=== PATIENT | female | born 1955 | race Two or more races ===

== ENCOUNTER 2019-07-09 13:09 | Outpatient (CLI) | payer MEDICARE, OTHER ==
[2019-07-09 13:24] LABS: BASOPHILS # (AUTO) 0.1 10^3/uL (0.0-0.1); BASOPHILS % (AUTO) 0.5 %; EOSINOPHILS # (AUTO) 0.3 10^3/uL (0.0-0.7); EOSINOPHILS % (AUTO) 2.2 %; HGB - HEMOGLOBIN 13.7 g/dL (12.0-16.0); LYMPHOCYTES % (AUTO) 15.2 %; MEAN CORPUSCULAR HEMOGLOBIN 28.2 pg (27.0-31.0); MEAN CORPUSCULAR HGB CONC 31.6 g/dL (32.0-36.0); MEAN CORPUSCULAR VOLUME 89.5 fL (81.0-99.0); MEAN PLATELET VOLUME 10.2 fL (7.9-10.8); MONOCYTES # (AUTO) 0.8 10^3/uL (0.0-1.0); MONOCYTES % (AUTO) 6.4 %; NEUTROPHILS # (AUTO) 9.8 10^3/uL (1.5-6.6); NEUTROPHILS % (AUTO) 75.2 %; PLT - PLATELET COUNT 296 10^3/uL (130-450); RED BLOOD COUNT 4.85 10^6/uL (4.20-5.40); RED CELL DISTRIBUTION WIDTH 13.2 % (12.0-15.0)
[2019-07-09 13:50] LABS: ALBUMIN 4.1 g/dL (3.2-5.5); BILIRUBIN,TOTAL 0.8 mg/dL (0.2-1.0); CALCIUM 9.1 mg/dL (8.5-10.3); CREATININE 0.9 mg/dL (0.4-1.0); TOTAL PROTEIN 8.3 g/dL (6.7-8.2)
== END 2019-07-09 13:10 | disposition home or self-care (01) ==
LOC: LAB 13:09
PROVIDERS: ATTEND Internal Medicine
DX: I50.9 Heart failure, unspecified (principal); J90 Pleural effusion, not elsewhere classified
CPT/HCPCS: 36415; 80053; 85025

== ENCOUNTER 2023-11-04 15:58 | Inpatient (IN) | payer MEDICARE, OTHER ==
--- NOTE | 2023-11-04 16:10 | ED Physician Documentation ---
PD HPI CHEST PAIN - Stated complaint Stated Complaint: CHEST PX - History obtained from History obtained from: Patient, Family - Additional information Additional information: 67-year-old woman with history of coronary disease with four-vessel bypass and a valve repair done in [place] about 5 years ago. As of late she has been noncompliant with medications, not taking aspirin. She is also a diabetic. She was awoken this morning at 6 AM with chest tightness that has been pretty consistent since then. Associate with mild shortness of breath and nausea and dizziness but no sweats. She denies any new pedal edema or calf pain. She does have some chronic pedal edema from a prior injury there. PD PAST MEDICAL HISTORY - Past Medical History Past Medical History: Yes Cardiovascular: Hypertension, High cholesterol Endocrine/Autoimmune: Type 2 diabetes - Past Surgical History Past Surgical History: Yes Cardiovascular: CABG - Present Medications Home Medications: Ambulatory Orders Medication Instructions Recorded Confirmed Home Medications Unobtainable 11/04/23 11/04/23 [HOME MEDICATIONS UNOBTAINABLE] - Allergies Allergies/Adverse Reactions: Allergies Allergy/AdvReac Type Severity Reaction Status Date / Time No Known Drug Allergies Allergy Verified 11/04/23 16:06 - Social History Does the pt smoke?: No Smoking Status: Never smoker Does the pt drink ETOH?: No Does the pt have substance abuse?: No - Immunizations Immunizations are current?: Yes PD ED PE NORMAL - Vitals Vital signs reviewed: Yes - General General: Alert and oriented X 3, No acute distress - HEENT HEENT: PERRL, EOMI - Neck Neck: Supple, no meningeal sign, No bony TTP - Cardiac Cardiac: RRR, No murmur - Respiratory Respiratory: No respiratory distress, Clear bilaterally - Abdomen Abdomen: Non tender - Extremities Extremities: Other (Right greater than left pedal edema with venous stasis changes. This is chronic per patient.) - Neuro Neuro: Alert and oriented X 3, Normal speech Results - Vitals Vitals: Vital Signs - 24 hr 11/04/23 11/04/23 11/04/23 16:06 16:39 16:58 Temperature 36.5 C Heart Rate 96 92 94 Respiratory 20 18 23 Rate Blood Pressure 155/79 H 155/79 H 93/53 L O2 Saturation 100 94 95 11/04/23 11/04/23 11/04/23 17:09 17:30 18:00 Temperature Heart Rate 89 87 83 Respiratory 26 H 23 17 Rate Blood Pressure 123/67 116/67 130/68 O2 Saturation 96 95 97 11/04/23 18:30 Temperature Heart Rate 81 Respiratory 14 Rate Blood Pressure 142/69 H O2 Saturation 96 Oxygen O2 Source Room air - EKG (time done) 1603 EKG releavant findings:: EKG personally interpreted by author of this note. Relevant findings are: Rate: Rate (enter#) (92) Rhythm: NSR [place]: Normal Intervals: Prolonged MS QRS: LVH Ischemia: Q waves (Inferior Q waves). No: ST elevation c/w ischemia, ST depression Compare to prior EKG: Old EKG unavailable Computer interpretation: Agree with computer - Labs Labs: Laboratory Tests 11/04/23 11/04/23 16:35 16:35 WBC 22.0 H RBC 4.88 Hgb 14.1 Hct 42.3 MCV 86.7 MCH 28.9 MCHC 33.3 RDW 12.1 Plt Count 279 MPV 10.5 Neut # (Auto) Not Reportable Lymph # (Auto) Not Reportable [place] # (Auto) Not Reportable Eos # (Auto) Not Reportable Baso # (Auto) Not Reportable Absolute Nucleated RBC Not Reportable Total Counted 100 Band Neuts % (Manual) 4 Abnorm Lymph % (Manual) 0 Nucleated RBC % Not Reportable Neutrophils # (Manual) 19.4 H Lymphocytes # (Manual) 1.3 L Monocytes # (Manual) 1.3 H Eosinophils # (Manual) 0.0 Basophils # (Manual) 0.0 Differential Comment MANUAL DIFFERENTIAL Platelet Estimate NORMAL (130-450,000) Platelet Morphology NORMAL APPEARANCE RBC Morph Micro Appear NORMAL APPEARANCE Sodium 131 L Potassium 4.1 Chloride 98 L Carbon Dioxide 23 Anion Gap 10.0 BUN 30 H Creatinine 1.1 Estimated GFR (MDRD) 49 L Glucose 454 H Calcium 9.7 Total Bilirubin 2.1 H AST 446 H ALT 129 H Alkaline Phosphatase 190 H Troponin I High Sens 4.5 Total Protein 7.3 Albumin 4.0 Globulin 3.3 Albumin/Globulin Ratio 1.2 Lipase 38 PD Medical Decision Making - ED course ED course: 67-year-old woman with history of four-vessel coronary bypass and valve repair presents with ongoing chest tightness since 6 AM. Her initial EKG was sinus rhythm and nonischemic. I ordered some metoprolol, Nitropaste and aspirin. Whe n queried about medication compliance, she says she takes metoprolol about twice a week when she remembers, and she is not on anything for her diabetes. There is called into the room around 4:30 PM. She would become nauseous and developed significant heart block with 5+ second pauses. She was vomiting during that time and after she vomited, her heart rate came back to normal. Subsequently her initial lab work was notable for white count of 22,000 and mild hyponatremia, and elevated liver enzymes. On reexamination at that time, 5:05 PM she had no abdominal tenderness including to deep palpation in the right upper quadrant. That said biliary etiology of her pain is still a possibility and a right upper quadrant ultrasound was ordered. She was feeling much better at that time and has not had any more pauses. At about 5:30 PM I did discuss the case with our hospitalist. With the specific question of if she has cholecystitis or even if not could she be admitted here. We discussed the case with the on-call STONE PRODUCT FABRICATOR, and all felt that as long as there were no more blocks she could probably be admitted here for further evaluation and treatment. Care to Dr Flores at 6p pending CARLI sono and admit. Departure - Departure Clinical Impression: Chest pain, Vaso-vagal reaction, Sinus pause, Elevated liver enzymes Condition: Serious
[2023-11-04] MEDS: METOPROLOL TARTRATE 25 MG TABLET PO STA (16:23)
[2023-11-04] MEDS: ASPIRIN CHEW 81 MG TABLET PO STA (16:23)
[2023-11-04] MEDS: NITROGLYCERIN SL 0.4 MG TABLET SL STA (16:24)
[2023-11-04 16:51] LABS: BASOPHILS % (AUTO) 0.3 %; HCT - HEMATOCRIT 42.3 % (37.0-47.0); HGB - HEMOGLOBIN 14.1 g/dL (12.0-16.0); LYMPHOCYTES % (AUTO) 3.5 %; MEAN CORPUSCULAR HEMOGLOBIN 28.9 pg (27.0-31.0); MEAN CORPUSCULAR HGB CONC 33.3 g/dL (32.0-36.0); MEAN CORPUSCULAR VOLUME 86.7 fL (81.0-99.0); MEAN PLATELET VOLUME 10.5 fL (7.9-10.8); MONOCYTES % (AUTO) 4.3 %; NEUTROPHILS % (AUTO) 91.4 %; PLT - PLATELET COUNT 279 10^3/uL (130-450); RED BLOOD COUNT 4.88 10^6/uL (4.20-5.40); RED CELL DISTRIBUTION WIDTH 12.1 % (12.0-15.0)
[2023-11-04 16:54] LABS: ABNORMAL LYMPHS % (MANUAL) 0 %
[2023-11-04] MEDS: ONDANSETRON 4 MG/2 ML VIAL IVP STA (17:00)
[2023-11-04 17:02] LABS: ALBUMIN/GLOBULIN RATIO 1.2 (1.0-2.2); BILIRUBIN,TOTAL 2.1 mg/dL (0.2-1.0); CALCIUM 9.7 mg/dL (8.5-10.3); CREATININE 1.1 mg/dL (0.6-1.3); POTASSIUM 4.1 mmol/L (3.5-4.5); TOTAL PROTEIN 7.3 g/dL (6.4-8.9)
[2023-11-04 17:08] LABS: TROPONIN I HIGH SENSITIVITY 4.5 ng/L (2.3-14.8)
[2023-11-04 17:12] LABS: BAND NEUTROPHILS % (MANUAL) 4 %; LYMPHOCYTES # (MANUAL) 1.3 10^3/uL (1.5-3.5); LYMPHOCYTES % (MANUAL) 6 %; MONOCYTES # (MANUAL) 1.3 10^3/uL (0.0-1.0); NEUTROPHILS # (MANUAL) 19.4 10^3/uL (1.5-6.6)
[2023-11-04 17:13] LABS: DIFFERENTIAL COMMENT MANUAL DIFFERENTIAL; PLATELET ESTIMATE, MANUAL NORMAL (130-450,000) (NORMAL); PLATELET MORPHOLOGY NORMAL APPEARANCE (NORMAL); RBC MORPHOLOGY (MULTIPLE) NORMAL APPEARANCE (NORMAL)
[2023-11-04] MEDS: SODIUM CHLORIDE 0.9% 1,000 ML IV STA (17:28)
--- NOTE | 2023-11-04 17:34 | XRAY Report ---
PROCEDURE: Chest 1V INDICATIONS: Chest Pain TECHNIQUE: One view of the chest was acquired. COMPARISON: None. FINDINGS: Surgical changes and devices: Sternotomy wires are present. Lungs and pleura: No dense consolidation or pleural effusion. Mild left lower lung opacity. Mediastinum: Borderline cardiomegaly Bones and chest wall: Degenerative changes IMPRESSION: Mild left lower lung opacity could represent early airspace disease versus atelectasis. Otherwise, no acute abnormality on this single view portable study. Reviewed by: Chon Holloway MD on 11/04/2023 5:33 PM PDT Approved by: Chon Holloway MD on 11/04/2023 5:33 PM PDT Station ID: [id number]
[2023-11-04] MEDS: INSULIN REGULAR, HUMAN 300 UNIT/3 ML PEN IVP STA (17:38)
--- NOTE | 2023-11-04 19:44 | Ultrasound Report ---
PROCEDURE: Abdomen Limited INDICATIONS: chest pain, abn liver enz TECHNIQUE: Real-time focused scanning was performed of the abdomen, with image documentation. COMPARISONS: None. FINDINGS: The liver measures 18 cm. Appearance is heterogeneous and increased echotexture. Main portal vein brendan ears patent. Distended gallbladder with mild wall thickening of 4 to 5 mm. Suspected sludge is present. No sonogra phic Yuen's sign. CBD measures 7 to 8 mm. Right kidney measures 11 cm. IMPRESSION: Distended gallbladder with sludge and mild and edematous wall thickening. No sonographic Yuen's sig n to suggest acute cholecystitis at this time. CBD is mildly dilated at 7 to 8 mm. Increased heterogeneous echotexture of the liver, nonspecific but most commonly seen with fibrofatty infiltration. Reviewed by: Chon Holloway MD on 11/04/2023 7:43 PM PDT Approved by: Chon Holloway MD on 11/04/2023 7:43 PM PDT Station ID: [id number]
--- NOTE | 2023-11-04 20:57 | ED Physician Documentation ---
ED Addendum - Addendum Addendum: 11/04/23 20:56 Patient was signed out to me by Dr. Tyler awaiting ultrasound. Ultrasound does not show any gallstones but does show some sludge. I discussed the ultrasound findings as well as the laboratory findings with Dr. Henson, general surgery on- call. The patient does have some mild chest discomfort but does not have any right upper quadrant tenderness or epigastric tenderness even to deep palpation. Possible mildly dilated duct, but again no stones. Dr. Henson recommends trending the patient's labs, seeing how she is feeling in the morning. Recommends holding antibiotics at this time as she is afebrile and is not having any abdominal pain. After this discussion, the telehospitalist was paged for observation to trend LFT's, wbc count, monitor on tele for any more episodes of heart block and serial troponins. 11/04/23 22:18 Discussed the case with the nighttime hospitalist, request repeat liver function test before admission. Therefore this was ordered. The patient's urinalysis also came back which does appear to show UTI, but giving antibiotics would comp licate the potential cholecystitis, therefore this will be held until repeat LFTs in the morning. Patient is signed out to Dr. Pennington. Departure - Departure Disposition: ED Place in Observation Clinical Impression: Chest pain, Vaso-vagal reaction, Sinus pause, Elevated liver enzymes, Leukocytosis, UTI (urinary tract infection), Hyperglycemia Condition: Serious Forms: PCP List
[2023-11-04 21:10] LABS: BILIRUBIN,URINE NEGATIVE (NEGATIVE); GLUCOSE, URINE (UA) >=1000 mg/dL (NEGATIVE); KETONES,URINE (UA) TRACE mg/dL (NEGATIVE); LEUKOCYTE ESTERASE, URINE SMALL (NEGATIVE); NITRITE,URINE POSITIVE (NEGATIVE); OCCULT BLOOD,URINE LARGE (NEGATIVE); PROTEIN,URINE 30 mg/dL (NEGATIVE); UROBILINOGEN,URINE 1 (NORMAL) E.U./dL (NORMAL)
[2023-11-04 21:11] LABS: CLARITY,URINE CLOUDY (CLEAR)
[2023-11-04 21:23] LABS: WBC CLUMPS,URINE PRESENT; WBC,URINE >25 /HPF (0-5)
[2023-11-04 21:24] LABS: BACTERIA,URINE Many /HPF (None Seen); EPITHELIAL CELLS,UR RARE Transitional /HPF (<= Few); SQUAMOUS EPITHELIAL CELL,UR FEW Squamous (<= Few)
[2023-11-04 22:21] LABS: BASOPHILS % (AUTO) 0.2 %; EOSINOPHILS % (AUTO) 0.1 %; HGB - HEMOGLOBIN 12.9 g/dL (12.0-16.0); LYMPHOCYTES # (AUTO) 0.7 10^3/uL (1.5-3.5); LYMPHOCYTES % (AUTO) 4.6 %; MEAN CORPUSCULAR HEMOGLOBIN 29.2 pg (27.0-31.0); MEAN CORPUSCULAR HGB CONC 33.9 g/dL (32.0-36.0); MEAN PLATELET VOLUME 10.2 fL (7.9-10.8); MONOCYTES # (AUTO) 0.5 10^3/uL (0.0-1.0); MONOCYTES % (AUTO) 3.6 %; NEUTROPHILS # (AUTO) 13.5 10^3/uL (1.5-6.6); NEUTROPHILS % (AUTO) 91.1 %; PLT - PLATELET COUNT 251 10^3/uL (130-450); RED BLOOD COUNT 4.42 10^6/uL (4.20-5.40); RED CELL DISTRIBUTION WIDTH 12.1 % (12.0-15.0); WHITE BLOOD COUNT 14.8 x10^3/uL (4.8-10.8)
[2023-11-04 22:43] LABS: ALBUMIN 3.6 g/dL (3.2-5.5); ALBUMIN/GLOBULIN RATIO 1.2 (1.0-2.2); BILIRUBIN,TOTAL 2.1 mg/dL (0.2-1.0); POTASSIUM 4.2 mmol/L (3.5-4.5); TOTAL PROTEIN 6.5 g/dL (6.4-8.9)
[2023-11-04] MEDS ORDERED: oxyCODONE 5 MG TABLET PO PRN (23:25)
[2023-11-04] MEDS ORDERED: ONDANSETRON 4 MG/2 ML VIAL IVP PRN (23:25)
[2023-11-04] MEDS ORDERED: SODIUM CHLORIDE FLUSH 0.9% 10 ML SYRINGE IVP PRN (23:25)
[2023-11-04] MEDS ORDERED: ZOLPIDEM 5 MG TABLET PO PRN (23:25)
--- NOTE | 2023-11-04 23:34 | ED Physician Documentation ---
ED Addendum - Addendum Addendum: 11/05/23 11:14 Care of this patient was signed out to me by Dr. Flores who, in turn, had received sign out from Dr. Tyler. At the time care of patient was turned over to me, the ED course was already quite protracted and is well-documented on my colleagues notes. When I received signout, repeat blood tests (CBC, LFTs) were pending; these had been ordered at the request of the [facility] practitioner to whom Dr. Flores had presented the case for consideration for admission to [facility]. After these tests were resulted, I reviewed the results and placed a consult for [facility]. However, before I heard back from them, I was then informed by ED DOOR TO DOOR SALESMAN that admit orders had already been entered into [facility] for admission (by [employer]; this was apparently done right around the time I entered the request for (re)consult). Thus, I was not directly involved in this p atient's care during my shift.
[2023-11-05] MEDS ORDERED: PIPERACILLIN/TAZOBACTAM 3.375 GM in SODIUM CHLORIDE 0.9% MINIBAG 100 ML IV SCH
--- NOTE | 2023-11-05 00:15 | HISTORY & PHYSICAL EXAMINATION ---
Chief Complaint - Chief Complaint Chief Complaint: chest pain History of Present Illness - Admitted From Admitted From:: Home - History Obtained From Records Reviewed: Yes History obtained from: Patient, EMR Exam Limitations: Televideo - History of Present Illness HPI Comment/Other: As per ER MD "67-year-old woman with history of four-vessel coronary bypass and valve repair presents with ongoing chest tightness since 6 AM. Her initial EKG was sinus rhythm and nonischemic. I ordered some metoprolol, Nitropaste and aspirin. When queried about medication compliance, she says she takes metoprolol about twice a week when she remembers, and she is not on anything for her diabetes. There is called into the room around 4:30 PM. She would become nauseous and developed significant heart block with 5+ second pauses. She was vomiting during that time and after she vomited, her heart rate came back to normal. Subsequently her initial lab work was notable for white count of 22,000 and mild hyponatremia, and elevated liver enzymes. On reexamination at that time, 5:05 PM she had no abdominal tenderness including to deep palpation in the right upper quadrant. That said biliary etiology of her pain is still a possibility and a right upper quadrant ultrasound was ordered. She was feeling much better at that time and has not had any more pauses. At about 5:30 PM I did discuss the case with our hospitalist. With the specific question of if she has cholecystitis or even if not could she be admitted here. We discussed the case with the on-call LABOR UNION BUSINESS REPRESENTATIVE, and all felt that as long as there were no more blocks she could probably be admitted here for further evaluation and treatment. Care to Dr Flores at 6p pending RUQ sono and admit." Dr Flores called and we discussed patient at length I requested repeat CMP as diabetic patients may not have classical pain, repeat LFT are stable, I did a televideo with patient and her daughter, informed them that I am based in [place], verbal consent obtained to proceed with telemedicine encounter, patient is a retired marine, was very active till 5 years ago had 5 vessel bypass with valve repair, took meds religiously around 2 years ago felt meds were making her slow and decided to stop meds and took them as needed, states diabetes is managed by diet She looks comfortable still feels some tightness and pressure in the mid chest and right chest area, no nausea, no vomiting no fever no other active complaints, she is not complaining of classical chest pain not complaints of RLQ pain her USG was not normal but did not show a stone, have ordered MRCP of ABD in am and vinnie has been informed, she will be kept NPO except meds, have offered pain meds as needed, no tylenol due to elevated lft, have resumed asa and have held on insulin to see her A1c and lipid in am. All questions answered and also code status discussed and advance directives discussed, patient expressed full code I have discussed plan of care at [facility] with patient and her daughter History - Past Medical History Cardiovascular: reports: Hypertension, High cholesterol Endocrine/Autoimmune: reports: Type 2 diabetes MRSA Hx?: No - Past Surgical History Cardiovascular: reports: CABG Meds/Allgy - Home Medications Home Medications: Ambulatory Orders Medication Instructions Recorded Confirmed Home Medications Unobtainable 11/04/23 11/04/23 [HOME MEDICATIONS UNOBTAINABLE] - Allergies Allergies/Adverse Reactions: Allergies Allergy/AdvReac Type Severity Reaction Status Date / Time No Known Drug Allergies Allergy Verified 11/04/23 16:06 Review of Systems - Cardiovascular Cariovascular: reports: Chest pain Prior Level of Functionality: Independent with ADL Exam - Vital Signs Vital Signs: Vital Signs x48h Temp Pulse Resp BP Pulse Ox 11/04/23 22:00 75 18 152/71 H 96 11/04/23 21:00 64 18 147/73 H 99 11/04/23 18:30 81 14 142/69 H 96 11/04/23 18:00 83 17 130/68 97 11/04/23 17:30 87 23 116/67 95 11/04/23 17:09 89 26 H 123/67 96 11/04/23 16:58 94 23 93/53 L 95 11/04/23 16:39 92 18 155/79 H 94 11/04/23 16:06 36.5 C 96 20 155/79 H 100 - Physical Exam General Appearance: positive: No acute distress Eyes Bilateral: positive: Normal inspection, PERRL, Other ENT: positive: ENT inspection nml Neck: positive: Nml inspection, Thyroid nml Respiratory: positive: No respiratory distress Cardiovascular: positive: Regular rate & rhythm Abdomen: positive: Non-tender Back: positive: Nml inspection Skin: positive: Color nml, No rash Extremities: positive: Nml appearance Neurologic/Psychiatric: positive: Oriented x3, CN's nml (2-12) Sepsis Event Note (H) - Evaluation Current Stage of Sepsis: Ruled out Conclusion/Plan - Problem List (1) Chest pain Conclusion/Plan: Check cardiac enzymes, ASA 81 mg daily Troponin Echo Daughter to bring home meds in am SCD Qualifiers: Chest pain type: unspecified Qualified Code(s): R07.9 - Chest pain, unspecified (2) Elevated liver enzymes Conclusion/Plan: Avoid nephrotoxins IF MRCP negative check hepatitis profile Gen surgery consulted On Zosyn Holding statins and Tylenol (3) Leukocytosis Conclusion/Plan: Likely UTI and possible gall stone monitor for now repeat WBC (4) Sinus pause Conclusion/Plan: Hold Metoprolol traffic monitor specialist for now Check Echo (5) UTI (urinary tract infection) Conclusion/Plan: Started on Zosyn broad spectrum, for intra abdominal coverage follow up urine cultures - Lab Results Fish Bones: 11/04/23 22:16 11/04/23 22:16
[2023-11-05] MEDS: SODIUM CHLORIDE FLUSH 0.9% 10 ML SYRINGE IVP SCH (01:02)
[2023-11-05] MEDS: SODIUM CHLORIDE 0.9% 1,000 ML IV SCH (01:02)
[2023-11-05] MEDS: PIPERACILLIN/TAZOBACTAM 3.375 GM in SODIUM CHLORIDE 0.9% MINIBAG 100 ML IV ONE (01:12)
[2023-11-05] MEDS: PIPERACILLIN/TAZOBACTAM 3.375 GM in SODIUM CHLORIDE 0.9% MINIBAG 100 ML IV SCH ×2 (01:33→04:40)
[2023-11-05] MEDS: ASPIRIN EC 81 MG TABLET PO SCH (09:06)
[2023-11-05 10:34] LABS: ESTIMATED AVERAGE GLUCOSE 395 mg/dL (70-100); HEMOGLOBIN A1c% 15.4 % (4.27-6.07)
--- NOTE | 2023-11-05 10:40 | PHARMACY PROGRESS NOTE ---
- Best Possible Medication History Admit Date and Time: 11/04/23 3688 Processed by: Pharmacy Medications reviewed in ED?: No Medication History completed: Yes Patient Interview: Completed Secondary Source(s): Insurance records (Patient has filled some medications, but does not remember to take them regularly and maybe only takes metoprolol 20% of the time. Patient plans to see outpatient provider to see where to start again. ) As the person ultimately responsible for medication therapy, providers are able to order a medication from an existing home medication list in [facility] via the "Reconcile Routine" prior to Confirmation of that medication by user support analyst supervisor. Such practice is discouraged except when the physician, in their clinical judgment, deems that a medical need exists for a medication without regard to previous use.
[2023-11-05] MEDS ORDERED: GADOTERATE MEGLUMINE 7.5 MMOL/15 ML VIAL ONE (10:48)
--- NOTE | 2023-11-05 12:14 | PROVIDER PROGRESS NOTE ---
Subjective - Prog Note Date Prog Note Date: 11/05/23 Prog Note Time: 09:15 - Subjective Pt reports feeling: Improved Subjective: Ms. Andre is a 67-year-old woman with history of four-vessel coronary bypass and valve repair who presented to the ED on 11/03 with ongoing chest tightness since 6 AM. When queried about medication compliance, she says she takes metoprolol about twice a week when she remembers, and she is not on anything for her diabetes. She is a retired marine, was very active till 5 years ago had 5 vessel bypass with valve repair, took meds religiously around 2 years ago felt meds were making her slow and decided to stop meds and took them as needed, states diabetes is managed by diet. Chest pain was treated with metoprolol, Nitropaste and aspirin. At 4:30 PM she become nauseous and developed significant heart block with 5+ second pauses. She was vomiting during that time and after she vomited, her heart rate came back to normal. In the ED, her initial EKG was sinus rhythm and nonischemic. Initial work-up notable for white count of 22,000 and elevated liver enzymes. She has no abdominal tenderness including to deep palpation in the right upper quadrant. Biliary etiology of her pain is a possibility and can cause nausea and vomiting. She has not had any further vomiting, bradycardia or heart block. Repeat LFTs are stable but markedly elevated but she has no fever, RUQ pain, or jaundice. She continued to have some tightness and pressure in the mid chest and right chest area. Her chest pain is not consistent with ACS and troponin was normal with no ischemia or ST elevation on 12-lead. AUS showed a distended gallbladder with sludge and mild edematous wall thickening, CBD mildly dilated at 7-8 mm, and increased heterogenous echotexture of the liver, most commonly seen with fibrofatty infiltration. She was found to have a UTI but has no associated urinary complaints. She was started on zosyn and admitted for further work-up. Upon assessment, she resting comfortably and roused easily. She is ambulatory, alert and oriented, and reports mild chest tightness and nausea. She has not vo mited since admission and denies cough, SOB, abdominal pain, or dysuria. Her labs are concerning for cholangitis and she meets laboratory criteria including leukocytosis, T. bili >2, and US findings of CBD dilation. She has no expected physical exam findings or complaints for cholangitis such as RUQ pain, jaundice, or fever. An MRCP has been ordered to evaluate for billiary obstruction suggested by dilation of the common bile duct and she is on zosyn to cover abdominal infection and concurrent UTI. If obstruction is present, she will need transfer for ERCP which is not available in this facility. Current Medications - Current Medications Current Medications: Active Medications Generic Name Dose Route Start Last Admin Trade Name Freq PRN Reason Stop Dose Admin Aspirin 81 mg 11/05/23 09:00 11/05/23 09:06 Aspirin Ec 81 Mg Tablet PO Not Given DAILY CRISTIANA Sodium Chloride 1,000 mls @ 100 mls/hr 11/04/23 23:45 11/05/23 01:02 Normal Saline 0.9% IV 100 mls/hr .Q10H CRISTIANA Administration Piperacillin Sod/Tazobactam 100 mls @ 25 mls/hr 11/05/23 04:30 11/05/23 12:28 Sod 3.375 gm/ Sodium Chloride IV 25 mls/hr Q8H CRISTIANA Administration Insulin Glargine-yfgn 10 unit 11/05/23 21:00 Insulin Glargine-Yfgn 300 Unit/3 Ml Pen SUBQ QPM CRISTIANA Insulin Human Regular 1 - 5 unit 11/05/23 18:00 Insulin Regular, Human 300 Unit/3 Ml Pen SUBQ Q6HR CRISTIANA Protocol Ondansetron HCl 4 mg 11/04/23 23:25 Ondansetron 4 Mg/2 Ml Vial IVP Q6HR PRN Nausea / Vomiting Oxycodone HCl 5 mg 11/04/23 23:25 Oxycodone 5 Mg Tablet PO Q4HR PRN Pain 5 to 7 Sodium Chloride 10 ml 11/04/23 23:25 Sodium Chloride Flush 0.9% 10 Ml Syringe IVP PRN PRN NEEDED PER PROVIDER ORDERS Sodium Chloride 10 ml 11/05/23 01:00 11/05/23 09:07 Sodium Chloride Flush 0.9% 10 Ml Syringe IVP 10 ml 0100,[id number],1700 CRISTIANA Administration Zolpidem Tartrate 5 mg 11/04/23 23:25 Zolpidem 5 Mg Tablet PO QPM PRN Insomnia No Known Home Medications 11/05/23 Objective - Vital Signs/Intake & Output Reviewed Vital Signs: Yes Vital Signs: Vital Signs x48h Temp Pulse Resp BP 11/05/23 08:00 37.5 C 88 20 128/62 Intake & Output: Intake & Output 11/02/23 11/03/23 11/04/23 11/05/23 23:59 23:59 23:59 23:59 Intake Total 1000 200 Output Total 450 Balance 1000 -250 - Objective General Appearance: positive: No acute distress, Alert, Other (67 y/o obese female, conversant and pleasant) Eyes Bilateral: positive: Normal inspection Respiratory: positive: Chest non-tender, No respiratory distress, Breath sounds nml. negative: Wheezes, Rales, Rhonchi Cardiovascular: positive: Regular rate & rhythm, No gallop, Systolic murmur Peripheral Pulses: 2+ Radial (R), 2+ Radial (L), 2+ Posterior tibialis (R), 2+ Posterior tibialis (L) Abdomen: positive: Non-tender, No organomegaly, Nml bowel sounds, No distention, Other (Obese). negative: Guarding, Rebound Back: positive: Nml inspection Skin: positive: Color nml, Warm, Dry, Other Extremities: positive: Non-tender, No pedal edema, Other (Dry, peeling, and schlerotic skin bilateral lower extremities with hemosiderin staining, small lesion right big toe and crack left lateral big toe) Neurologic/Psychiatric: positive: Oriented x3, CN's nml (2-12), Motor nml, Sensation nml, Mood/affect nml - Lab Results Fish Bones: 11/04/23 22:16 11/04/23 22:16 Other Labs: Lab Results x24hrs 11/05/23 11/05/23 11/04/23 Range/Units 05:18 05:18 22:16 WBC (4.8-10.8) x10^3/uL RBC (4.20-5.40) 10^6/uL Hgb (12.0-16.0) g/dL Hct (37.0-47.0) % MCV (81.0-99.0) fL MCH (27.0-31.0) pg MCHC (32.0-36.0) g/dL RDW (12.0-15.0) % Plt Count (130-450) 10^3/uL MPV (7.9-10.8) fL Neut # (Auto) Lymph # (Auto) Kimble # (Auto) Eos # (Auto) Baso # (Auto) Absolute Nucleated RBC Total Counted Band Neuts % (Manual) (0 - 10) % Abnorm Lymph % (Manual) % Nucleated RBC % Neutrophils # (Manual) (1.5-6.6) 10^3/uL Lymphocytes # (Manual) (1.5-3.5) 10^3/uL Monocytes # (Manual) (0.0-1.0) 10^3/uL Eosinophils # (Manual) (0-0.7) 10^3/uL Basophils # (Manual) (0-0.1) 10^3/uL Differential Comment Platelet Estimate (NORMAL) Platelet Morphology (NORMAL) RBC Morph Micro Appear (NORMAL) Sodium 132 L (135-145) mmol/L Potassium 4.2 (3.5-4.5) mmol/L Chloride 102 (101-111) mmol/L Carbon Dioxide 23 (21-32) mmol/L Anion Gap 7.0 (6-13) BUN 27 H (6-20) mg/dL Creatinine 1.0 (0.6-1.3) mg/dL Estimated GFR (MDRD) 55 L (>89) Glucose 357 H (74-104) mg/dL Estimat Average Glucose 395 H (70-100) mg/dL Hemoglobin A1c % 15.4 H (4.27-6.07) % Calcium 9.0 (8.5-10.3) mg/dL Total Bilirubin 2.1 H (0.2-1.0) mg/dL AST 1088 H (10-42) IU/L ALT 400 H (10-60) IU/L Alkaline Phosphatase 188 H (42-121) IU/L Troponin I High Sens 7.3 (2.3-14.8) ng/L Total Protein 6.5 (6.4-8.9) g/dL Albumin 3.6 (3.2-5.5) g/dL Globulin 2.9 (2.1-4.2) g/dL Albumin/Globulin Ratio 1.2 (1.0-2.2) Lipase (11-82) U/L Urine Color Urine Clarity (CLEAR) Urine pH (5.0-7.5) PH Ur Specific Broxton (1.002-1.030) Urine Protein (NEGATIVE) mg/dL Urine Glucose (UA) (NEGATIVE) mg/dL Urine Ketones (NEGATIVE) mg/dL Urine Occult Blood (NEGATIVE) Urine Nitrite (NEGATIVE) Urine Bilirubin (NEGATIVE) Urine Urobilinogen (NORMAL) E.U./dL Ur Leukocyte Esterase (NEGATIVE) Urine RBC (0-5) /HPF Urine WBC (0-5) /HPF Urine WBC Clumps Ur Epithelial Cells (<= Few) /HPF Ur Squamous Epith Cells (<= Few) Urine Bacteria (None Seen) /HPF Ur Microscopic Review Urine Culture Comments 11/04/23 11/04/23 11/04/23 Range/Units 22:16 20:48 16:35 WBC 14.8 H (4.8-10.8) x10^3/uL RBC 4.42 (4.20-5.40) 10^6/uL Hgb 12.9 (12.0-16.0) g/dL Hct 38.0 (37.0-47.0) % MCV 86.0 (81.0-99.0) fL MCH 29.2 (27.0-31.0) pg MCHC 33.9 (32.0-36.0) g/dL RDW 12.1 (12.0-15.0) % Plt Count 251 (130-450) 10^3/uL MPV 10.2 (7.9-10.8) fL Neut # (Auto) 13.5 H Lymph # (Auto) 0.7 L Kimble # (Auto) 0.5 Eos # (Auto) 0.0 Baso # (Auto) 0.0 Absolute Nucleated RBC 0.00 Total Counted Band Neuts % (Manual) (0 - 10) % Abnorm Lymph % (Manual) % Nucleated RBC % 0.0 Neutrophils # (Manual) (1.5-6.6) 10^3/uL Lymphocytes # (Manual) (1.5-3.5) 10^3/uL Monocytes # (Manual) (0.0-1.0) 10^3/uL Eosinophils # (Manual) (0-0.7) 10^3/uL Basophils # (Manual) (0-0.1) 10^3/uL Differential Comment Platelet Estimate (NORMAL) Platelet Morphology (NORMAL) RBC Morph Micro Appear (NORMAL) Sodium 131 L (135-145) mmol/L Potassium 4.1 (3.5-4.5) mmol/L Chloride 98 L (101-111) mmol/L Carbon Dioxide 23 (21-32) mmol/L Anion Gap 10.0 (6-13) BUN 30 H (6-20) mg/dL Creatinine 1.1 (0.6-1.3) mg/dL Estimated GFR (MDRD) 49 L (>89) Glucose 454 H (74-104) mg/dL Estimat Average Glucose (70-100) mg/dL Hemoglobin A1c % (4.27-6.07) % Calcium 9.7 (8.5-10.3) mg/dL Total Bilirubin 2.1 H (0.2-1.0) mg/dL AST 446 H (10-42) IU/L ALT 129 H (10-60) IU/L Alkaline Phosphatase 190 H (42-121) IU/L Troponin I High Sens 4.5 (2.3-14.8) ng/L Total Protein 7.3 (6.4-8.9) g/dL Albumin 4.0 (3.2-5.5) g/dL Globulin 3.3 (2.1-4.2) g/dL Albumin/Globulin Ratio 1.2 (1.0-2.2) Lipase 38 (11-82) U/L Urine Color YELLOW Urine Clarity CLOUDY (CLEAR) Urine pH 6.0 (5.0-7.5) PH Ur Specific Broxton 1.020 (1.002-1.030) Urine Protein 30 H (NEGATIVE) mg/dL Urine Glucose (UA) >=1000 H (NEGATIVE) mg/dL Urine Ketones TRACE (NEGATIVE) mg/dL Urine Occult Blood LARGE H (NEGATIVE) Urine Nitrite POSITIVE H (NEGATIVE) Urine Bilirubin NEGATIVE (NEGATIVE) Urine Urobilinogen 1 (NORMAL) (NORMAL) E.U./dL Ur Leukocyte Esterase SMALL H (NEGATIVE) Urine RBC 6-10 H (0-5) /HPF Urine WBC >25 H (0-5) /HPF Urine WBC Clumps PRESENT Ur Epithelial Cells RARE Transitional (<= Few) /HPF Ur Squamous Epith Cells FEW Squamous (<= Few) Urine Bacteria Many H (None Seen) /HPF Ur Microscopic Review INDICATED Urine Culture Comments INDICATED 11/04/23 Range/Units 16:35 WBC 22.0 H (4.8-10.8) x10^3/uL RBC 4.88 (4.20-5.40) 10^6/uL Hgb 14.1 (12.0-16.0) g/dL Hct 42.3 (37.0-47.0) % MCV 86.7 (81.0-99.0) fL MCH 28.9 (27.0-31.0) pg MCHC 33.3 (32.0-36.0) g/dL RDW 12.1 (12.0-15.0) % Plt Count 279 (130-450) 10^3/uL MPV 10.5 (7.9-10.8) fL Neut # (Auto) Not Reportable Lymph # (Auto) Not Reportable Kimble # (Auto) Not Reportable Eos # (Auto) Not Reportable Baso # (Auto) Not Reportable Absolute Nucleated RBC Not Reportable Total Counted 100 Band Neuts % (Manual) 4 (0 - 10) % Abnorm Lymph % (Manual) 0 % Nucleated RBC % Not Reportable Neutrophils # (Manual) 19.4 H (1.5-6.6) 10^3/uL Lymphocytes # (Manual) 1.3 L (1.5-3.5) 10^3/uL Monocytes # (Manual) 1.3 H (0.0-1.0) 10^3/uL Eosinophils # (Manual) 0.0 (0-0.7) 10^3/uL Basophils # (Manual) 0.0 (0-0.1) 10^3/uL Differential Comment MANUAL DIFFERENTIAL Platelet Estimate NORMAL (130-450,000) (NORMAL) Platelet Morphology NORMAL APPEARANCE (NORMAL) RBC Morph Micro Appear NORMAL APPEARANCE (NORMAL) Sodium (135-145) mmol/L Potassium (3.5-4.5) mmol/L Chloride (101-111) mmol/L Carbon Dioxide (21-32) mmol/L Anion Gap (6-13) BUN (6-20) mg/dL Creatinine (0.6-1.3) mg/dL Estimated GFR (MDRD) (>89) Glucose (74-104) mg/dL Estimat Average Glucose (70-100) mg/dL Hemoglobin A1c % (4.27-6.07) % Calcium (8.5-10.3) mg/dL Total Bilirubin (0.2-1.0) mg/dL AST (10-42) IU/L ALT (10-60) IU/L Alkaline Phosphatase (42-121) IU/L Troponin I High Sens (2.3-14.8) ng/L Total Protein (6.4-8.9) g/dL Albumin (3.2-5.5) g/dL Globulin (2.1-4.2) g/dL Albumin/Globulin Ratio (1.0-2.2) Lipase (11-82) U/L Urine Color Urine Clarity (CLEAR) Urine pH (5.0-7.5) PH Ur Specific Broxton (1.002-1.030) Urine Protein (NEGATIVE) mg/dL Urine Glucose (UA) (NEGATIVE) mg/dL Urine Ketones (NEGATIVE) mg/dL Urine Occult Blood (NEGATIVE) Urine Nitrite (NEGATIVE) Urine Bilirubin (NEGATIVE) Urine Urobilinogen (NORMAL) E.U./dL Ur Leukocyte Esterase (NEGATIVE) Urine RBC (0-5) /HPF Urine WBC (0-5) /HPF Urine WBC Clumps Ur Epithelial Cells (<= Few) /HPF Ur Squamous Epith Cells (<= Few) Urine Bacteria (None Seen) /HPF Ur Microscopic Review Urine Culture Comments - Diagnostic Imaging Diagnostic Imaging Results: positive: Final report reviewed Diagnostic Imaging Comments: AUS: 1) distended gallbladder with sludge and mild edematous wall thickening, no sonographic balderas's sign to suggest acute cholycystitis 2) CBD mildly dilated @ 7-8 mm 3) increased heterogenous echogenicity of the liver, most commonly associated with fibrofatty infiltration ABX Reporting Has patient been on IV antibiotics over the past 48 hours?: Yes Sepsis Event Note (H) - Evaluation Current Stage of Sepsis: Ruled out Assessment/Plan - Problem List (1) Chest pain Impression: She presented to the ED on 11/03 with chest tightness since 0600, hx of CABGx5 and currently using metoprolol PRN. 12-lead in the ED SR without ischemia or ST elevation, troponin normal. She was treated with ASA, NTG SL x1 and 25 mg PO metoprolol in the ED and eveloped n/v and transient hypotension with heart block and 5 second sinus pause. No recurrent of arrhythmia or sinus pause, likely a vago-vasal event related to vomiting. Her repeat troponin was normal. At this time, I do not believe her chest pain is cardiac in nature. As she is an elderly female with uncontrolled diabetes, her chest pain could represent referred symptoms froma billiary pathology. I will continue her on tele and ASA, as she should be on daily ASA given her underlying heart disease. Qualifiers: Chest pain type: unspecified Qualified Code(s): R07.9 - Chest pain, unspecified (2) Elevated liver enzymes Impression: She has elevated LFTs in a pattern consistent with cholangitis. Her AUS chows a dilated CBD at 7-8 mm and a distended gallbladder with slidge and mild edematous wall thickening. She has no expected physical exam findings or complaints consistent with cholangitis such as RUQ pain, jaundice, or fever. She does have persistent nausea, vomited yesterday, and has mild persistent chest tightness with some right sided chest pain which may represent referred pain. nausea and vomiting are also consistent with biliary pathology. She meets the laboratory criteria for cholangitis with T bili >2, Persistently elevated LFTs, and dilation of the CBD. An MRCP has been ordered and we are awaiting results. If an obstuction is present, she will need transfer to a facility capable of ERCP. I have ordered a viral hepatitis panel, CRP, amylase, lipase, and procalcitonin to evaluate degree of infection and inflammation and possible viral etiology. She is NPO until after results of her MRCP. She has PRN zofran for nausea. I will monitor with repeat CMP. (3) Leukocytosis Impression: She has luekocytosis with a WBC of 14.8, down from 22.0 on 11/03 in the ED. This could be due to her UTI or cholangitis if MRCP confirms laboratory diagnosis of cholangitis, or both. She is on zosyn 3.375 gm q 8 hrs. This provides coverage for usual abdominal and urinary pathogens. The decrease in WBCs indicates adequate coverage. I will continue to monitor for signs of infection. I will continue the zosyn and work to identify underlying causes of infection and de-escalate when possible. (4) UTI (urinary tract infection) Impression: UA positive for UTI in the ED on 11/03. She denies any acute urinary symptoms. Micorbiology in pending for urine, growing gram negative rods, likley e. coli. She has uncontrolled DM type 2 with hyperglycemia which likely contributed to her UTI. She is on zosyn for coverage of antr-abdominal and urinary pathogens. I will de-escalate based on findings of MRCP and urine c/s. I will continue zosyn. (5) Diabetes type 2, uncontrolled Impression: She has type 2 DM and has not taken any medication for 2 years, states she manages it with "diet and exercise". She is persistently hyperglycemic with blood glucose high 300's and low 400's. A1c is 15.4 which correlates with an average blood glucose of 395. She has no evidence of ketoacidosis, with a normal anion gap. She also had notable proteinuria and glucosuria on UA. She is insulin naive and I will start her on lantus 10 units in the evening with low dose SSI TID. This will be adjusted as needed to improve glucose control and she will be discharged on metformin. Qualifiers: Glycemic state: with hyperglycemia (6) Sinus pause Impression: She had an episode of heart block with a 5 second sinus pause while vomiting in the ED. This has not recurred and she is hemodynamically stable. I believe this was a vasovagal event. I have her on tele and will continue this during her admission. (7) S/P CABG x 5 Impression: She reports 5 vessel CABG with valve repair 5 years ago, took her medications regularly until 2 years ago. She reportedly stopped because she felt the medications were making her slow. She currently uses her metropolol PRN. I suspect she felt slow as her heart likely does not function the way it did prior to her CABG. She was given a single dose of PRN metoprolol in the ED and had an episode of heart block with a sinus pause and nausea vomiting with transient hypotension. I believe this was a vasovagal event and not due to the metoprolol but cannot be absolutely certain. I will find out what she previously took for her heart and work to get her restarted on cardiac meds upon discharge and she will need PCP and cardiology follow-up. She was started on ASA in the ED and this will be continued.
[2023-11-05] MEDS: GADOTERATE MEGLUMINE 7.5 MMOL/15 ML VIAL IVP ONE (12:31)
[2023-11-05 12:48] LABS: CRP - C-REACTIVE PROTEIN 3.5 mg/dL (<0.5)
[2023-11-05 12:55] LABS: PROCALCITONIN 3.24 ng/mL (<0.5)
[2023-11-05] MEDS: INSULIN REGULAR, HUMAN 300 UNIT/3 ML PEN SUBQ SCH ×2 (18:04→23:47)
[2023-11-05] MEDS: INSULIN GLARGINE-YFGN 300 UNIT/3 ML PEN SUBQ SCH (20:28)
[2023-11-06 03:11] LABS: HBsAG SCREEN Negative (Negative); HCV AB Non Reactive (Non Reactive); HEPATITIS B CORE IGM AB Negative (Negative)
[2023-11-06 05:28] LABS: BASOPHILS % (AUTO) 0.4 %; EOSINOPHILS # (AUTO) 0.3 10^3/uL (0.0-0.7); EOSINOPHILS % (AUTO) 2.4 %; HCT - HEMATOCRIT 40.5 % (37.0-47.0); HGB - HEMOGLOBIN 13.5 g/dL (12.0-16.0); LYMPHOCYTES # (AUTO) 0.8 10^3/uL (1.5-3.5); LYMPHOCYTES % (AUTO) 7.4 %; MEAN CORPUSCULAR HEMOGLOBIN 29.4 pg (27.0-31.0); MEAN CORPUSCULAR HGB CONC 33.3 g/dL (32.0-36.0); MEAN CORPUSCULAR VOLUME 88.2 fL (81.0-99.0); MEAN PLATELET VOLUME 10.4 fL (7.9-10.8); MONOCYTES # (AUTO) 0.7 10^3/uL (0.0-1.0); MONOCYTES % (AUTO) 6.9 %; NEUTROPHILS # (AUTO) 8.5 10^3/uL (1.5-6.6); NEUTROPHILS % (AUTO) 82.2 %; PLT - PLATELET COUNT 245 10^3/uL (130-450); RED BLOOD COUNT 4.59 10^6/uL (4.20-5.40); RED CELL DISTRIBUTION WIDTH 12.6 % (12.0-15.0); WHITE BLOOD COUNT 10.4 x10^3/uL (4.8-10.8)
[2023-11-06 05:45] LABS: ALBUMIN 3.4 g/dL (3.2-5.5); ALBUMIN/GLOBULIN RATIO 1.2 (1.0-2.2); ALKALINE PHOSPHATASE 230 IU/L (42-121); ALT ALANINE AMINOTRANSFERASE 284 IU/L (10-60); AST ASPARTATE AMINOTRANSFERASE 171 IU/L (10-42); BILIRUBIN,TOTAL 3.3 mg/dL (0.2-1.0); BUN - BLOOD UREA NITROGEN 13 mg/dL (6-20); CALCIUM 8.6 mg/dL (8.5-10.3); CARBON DIOXIDE - CO2 20 mmol/L (21-32); CHLORIDE 108 mmol/L (101-111); CHOL/HDL RATIO 6.6 (<4.4); CHOLESTEROL 237 mg/dL; CREATININE 0.9 mg/dL (0.6-1.3); GFR - MDRD 62 (>89); GLUCOSE 188 mg/dL (74-104); HDL CHOLESTEROL 36 mg/dL; LDL CHOLESTEROL,CALCULATED 162 mg/dL; LDL/HDL RATIO 4.5 (<4.4); POTASSIUM 3.6 mmol/L (3.5-4.5); SODIUM 136 mmol/L (135-145); TOTAL PROTEIN 6.3 g/dL (6.4-8.9); TRIGLYCERIDES 195 mg/dL; VLDL CHOLESTEROL 39 mg/dL
--- NOTE | 2023-11-06 08:06 | MRI Report ---
PROCEDURE: MRCP without contrast INDICATIONS: abnromal lft CONTRAST: Clariscan 15ml TECHNIQUE: MRI images were obtained without contrast of the abdomen. Dedicated MRCP sequences were obtained. COMPARISON: Ultrasound 11/04/2023 FINDINGS: Image quality: Mild motion artifact Lower chest: Sternotomy wires. Lower lungs are not well evaluated on this study, no drainable effusio ns. Liver: Mild to moderate hepatic steatosis. No suspicious solid liver lesion on this noncontrast Gallbladder and biliary system: Moderate degree of sludge and possible tiny stones. Mild pericholecys tic edema and wall thickening. The gallbladder is overall distended. Tiny filling defects are seen in CBD which measures 6 to 7 mm (for example 03/25) Pancreas: No ductal dilation Spleen: Nonenlarged Adrenals: No discrete nodules Kidneys: No solid mass or hydronephrosis Vessels and lymph nodes: No pathologic lymph nodes by size criteria. There are prominent upper abdomi nal and kane hepatis lymph nodes, nonspecific and possibly reactive to liver disease. No abdominal a ortic aneurysm. Bowel and peritoneum: No evidence of small bowel obstruction. No pathologic ascites. Colonic divertic lee ann are seen. Body wall: Unremarkable Bones: Degenerative changes IMPRESSION: Distended gallbladder with mild wall thickening and pericholecystic edema. Moderate amount of sludge versus tiny gallstones are seen. Mildly distended CBD, with possible tiny filling defects representing additional sludge or tiny stone s in the CBD. Consider ERCP to further evaluate if clinically indicated. Mild to moderate hepatic steatosis. Other findings above. Reviewed by: Chon Holloway MD on 11/06/2023 8:04 AM PDT Approved by: Chon Holloway MD on 11/06/2023 8:04 AM PDT Station ID: [id number]
--- NOTE | 2023-11-06 08:47 | PROVIDER PROGRESS NOTE ---
Subjective - Prog Note Date Prog Note Date: 11/06/23 Prog Note Time: 08:41 - Subjective Pt reports feeling: No change Subjective: Ms. Andre is a 67-year-old woman with history of four-vessel coronary bypass and valve repair who presented to the ED on 11/03 with ongoing chest tightness since 6 AM. When queried about medication compliance, she says she takes metoprolol about twice a week when she remembers, and she is not on anything for her diabetes. She is a retired marine, was very active till 5 years ago had 5 vessel bypass with valve repair, took meds religiously around 2 years ago felt meds were making her slow and decided to stop meds and took them as needed, states diabetes is managed by diet. Chest pain was treated with metoprolol, Nitropaste and aspirin. At 4:30 PM she become nauseous and developed significant heart block with 5+ second pauses. She was vomiting during that time and after she vomited, her heart rate came back to normal. In the ED, her initial EKG was sinus rhythm and nonischemic. Initial work-up notable for white count of 22,000 and elevated liver enzymes. She has no abdominal tenderness including to deep palpation in the right upper quadrant. Biliary etiology of her pain is a possibility and can cause nausea and vomiting. She has not had any further vomiting, bradycardia or heart block. Repeat LFTs are stable but markedly elevated but she has no fever, RUQ pain, or jaundice. She continued to have some tightness and pressure in the mid chest and right chest area. Her chest pain is not consistent with ACS and troponin was normal with no ischemia or ST elevation on 12-lead. AUS showed a distended gallbladder with sludge and mild edematous wall thickening, CBD mildly dilated at 7-8 mm, and increased heterogenous echotexture of the liver, most commonly seen with fibrofatty infiltration. She was found to have a UTI but has no associated urinary complaints. She was started on zosyn and admitted for further work-up. Upon assessment, she resting comfortably and roused easily. She is ambulatory, alert and oriented, and reports mild chest tightness, nausea, and headache. She has not vomited since admission and denies cough, SOB, abdominal pain, or dysuria. Her labs were concerning for cholangitis and she meets laboratory criteria including leukocytosis, T. bili >2, and US findings of CBD dilation. She has no expected physical exam findings or complaints for cholangitis such as RUQ pain, jaundice, or fever. MRCP shows gallbladder distention and inflammation with mild CBD dilation and small filling defect, possible small stones. Her lab work is overall improved, suggesting a stone was likely present and passed on its own. She is clinically stable, her case was discussed with general surgery, and she can follow-up with her PCP and surgery outpatient for an elective cholecystectomy after she gets cardiac clearance. Current Medications - Current Medications Current Medications: Active Medications Generic Name Dose Route Start Last Admin Trade Name Freq PRN Reason Stop Dose Admin Aspirin 81 mg 11/05/23 09:00 11/06/23 08:28 Aspirin Ec 81 Mg Tablet PO 81 mg DAILY CRISTIANA Administration Sodium Chloride 1,000 mls @ 100 mls/hr 11/04/23 23:45 11/06/23 01:08 Normal Saline 0.9% IV 100 mls/hr .Q10H CRISTIANA Administration Piperacillin Sod/Tazobactam 100 mls @ 25 mls/hr 11/05/23 04:30 11/06/23 05:13 Sod 3.375 gm/ Sodium Chloride IV 25 mls/hr Q8H CRISTIANA Administration Insulin Glargine-yfgn 10 unit 11/05/23 21:00 11/05/23 20:28 Insulin Glargine-Yfgn 300 Unit/3 Ml Pen SUBQ 10 unit QPM CRISTIANA Administration Insulin Human Regular 1 - 9 unit 11/06/23 00:00 11/06/23 07:39 Insulin Regular, Human 300 Unit/3 Ml Pen SUBQ Not Given Q6HR [facility] Protocol Ondansetron HCl 4 mg 11/04/23 23:25 Ondansetron 4 Mg/2 Ml Vial IVP Q6HR PRN Nausea / Vomiting Oxycodone HCl 5 mg 11/04/23 23:25 Oxycodone 5 Mg Tablet PO Q4HR PRN Pain 5 to 7 Sodium Chloride 10 ml 11/04/23 23:25 Sodium Chloride Flush 0.9% 10 Ml Syringe IVP PRN PRN NEEDED PER PROVIDER ORDERS Sodium Chloride 10 ml 11/05/23 01:00 11/06/23 08:29 Sodium Chloride Flush 0.9% 10 Ml Syringe IVP Not Given 0100,0900,1700 [facility] Zolpidem Tartrate 5 mg 11/04/23 23:25 Zolpidem 5 Mg Tablet PO QPM PRN Insomnia No Known Home Medications 11/05/23 Objective - Vital Signs/Intake & Output Reviewed Vital Signs: Yes Vital Signs: Vital Signs x48h Temp Pulse Resp BP Pulse Ox 11/06/23 08:00 36.5 C 75 18 134/66 H 94 Intake & Output: Intake & Output 11/03/23 11/04/23 11/05/23 11/06/23 23:59 23:59 23:59 23:59 Intake Total 1000 1931.667 566.667 Output Total 450 Balance 1000 1481.667 566.667 - Objective General Appearance: positive: No acute distress, Alert, Other (67 y/o female, obese, pleasant and conversant) Respiratory: positive: Chest non-tender, No respiratory distress Cardiovascular: positive: Regular rate & rhythm, No gallop, Systolic murmur Peripheral Pulses: 2+ Radial (R), 2+ Radial (L), 2+ Posterior tibialis (R), 2+ Posterior tibialis (L) Abdomen: positive: Non-tender, No organomegaly, Nml bowel sounds, No distention Back: positive: Nml inspection Skin: positive: Color nml, No rash, Warm, Dry Extremities: positive: Non-tender, Other (Dry, peeling, and schlerotic skin bilateral lower extremities with hemosiderin staining, small lesion right big toe and crack left lateral big toe) Neurologic/Psychiatric: positive: Oriented x3, CN's nml (2-12), Motor nml, Sensation nml, Mood/affect nml - Lab Results Fish Bones: 11/06/23 05:08 11/06/23 05:08 Other Labs: Lab Results x24hrs 11/06/23 11/06/23 11/06/23 Range/Units 05:59 05:08 05:08 WBC 10.4 (4.8-10.8) x10^3/uL RBC 4.59 (4.20-5.40) 10^6/uL Hgb 13.5 (12.0-16.0) g/dL Hct 40.5 (37.0-47.0) % MCV 88.2 (81.0-99.0) fL MCH 29.4 (27.0-31.0) pg MCHC 33.3 (32.0-36.0) g/dL RDW 12.6 (12.0-15.0) % Plt Count 245 (130-450) 10^3/uL MPV 10.4 (7.9-10.8) fL Neut # (Auto) 8.5 H (1.5-6.6) 10^3/uL Lymph # (Auto) 0.8 L (1.5-3.5) 10^3/uL Harrison # (Auto) 0.7 (0.0-1.0) 10^3/uL Eos # (Auto) 0.3 (0.0-0.7) 10^3/uL Baso # (Auto) 0.0 (0.0-0.1) 10^3/uL Absolute Nucleated RBC 0.00 x10^3/uL Nucleated RBC % 0.0 /100WBC Sodium 136 (135-145) mmol/L Potassium 3.6 (3.5-4.5) mmol/L Chloride 108 (101-111) mmol/L Carbon Dioxide 20 L (21-32) mmol/L Anion Gap 8.0 (6-13) BUN 13 (6-20) mg/dL Creatinine 0.9 (0.6-1.3) mg/dL Estimated GFR (MDRD) 62 L (>89) Glucose 188 H (74-104) mg/dL POC Whole Bld Glucose 175 H (70 - 100) mg/dL Estimat Average Glucose (70-100) mg/dL Hemoglobin A1c % (4.27-6.07) % Calcium 8.6 (8.5-10.3) mg/dL Total Bilirubin 3.3 H (0.2-1.0) mg/dL AST 171 H (10-42) IU/L ALT 284 H (10-60) IU/L Alkaline Phosphatase 230 H (42-121) IU/L C-Reactive Protein (<0.5) mg/dL Total Protein 6.3 L (6.4-8.9) g/dL Albumin 3.4 (3.2-5.5) g/dL Globulin 2.9 (2.1-4.2) g/dL Albumin/Globulin Ratio 1.2 (1.0-2.2) Triglycerides 195 mg/dL Cholesterol 237 H ( - 200) mg/dL LDL Cholesterol, Calc 162 H ( - 129) mg/dL VLDL Cholesterol 39 mg/dL HDL Cholesterol 36 L (60 - ) mg/dL LDL/HDL Ratio 4.5 (<4.4) Cholesterol/HDL Ratio 6.6 (<4.4) Lipase (11-82) U/L Procalcitonin Immunoas (<0.5) ng/mL Hepatitis A IgM Ab (Negative) Hep Bs Antigen (Negative) Hep B Core IgM Ab (Negative) Hepatitis C Antibody (Non Reactive) Hepatitis C Interp (.) 11/05/23 11/05/23 11/05/23 Range/Units 23:45 20:29 17:23 WBC (4.8-10.8) x10^3/uL RBC (4.20-5.40) 10^6/uL Hgb (12.0-16.0) g/dL Hct (37.0-47.0) % MCV (81.0-99.0) fL MCH (27.0-31.0) pg MCHC (32.0-36.0) g/dL RDW (12.0-15.0) % Plt Count (130-450) 10^3/uL MPV (7.9-10.8) fL Neut # (Auto) (1.5-6.6) 10^3/uL Lymph # (Auto) (1.5-3.5) 10^3/uL Harrison # (Auto) (0.0-1.0) 10^3/uL Eos # (Auto) (0.0-0.7) 10^3/uL Baso # (Auto) (0.0-0.1) 10^3/uL Absolute Nucleated RBC x10^3/uL Nucleated RBC % /100WBC Sodium (135-145) mmol/L Potassium (3.5-4.5) mmol/L Chloride (101-111) mmol/L Carbon Dioxide (21-32) mmol/L Anion Gap (6-13) BUN (6-20) mg/dL Creatinine (0.6-1.3) mg/dL Estimated GFR (MDRD) (>89) Glucose (74-104) mg/dL POC Whole Bld Glucose 180 H 226 H 249 H (70 - 100) mg/dL Estimat Average Glucose (70-100) mg/dL Hemoglobin A1c % (4.27-6.07) % Calcium (8.5-10.3) mg/dL Total Bilirubin (0.2-1.0) mg/dL AST (10-42) IU/L ALT (10-60) IU/L Alkaline Phosphatase (42-121) IU/L C-Reactive Protein (<0.5) mg/dL Total Protein (6.4-8.9) g/dL Albumin (3.2-5.5) g/dL Globulin (2.1-4.2) g/dL Albumin/Globulin Ratio (1.0-2.2) Triglycerides mg/dL Cholesterol ( - 200) mg/dL LDL Cholesterol, Calc ( - 129) mg/dL VLDL Cholesterol mg/dL HDL Cholesterol (60 - ) mg/dL LDL/HDL Ratio (<4.4) Cholesterol/HDL Ratio (<4.4) Lipase (11-82) U/L Procalcitonin Immunoas (<0.5) ng/mL Hepatitis A IgM Ab (Negative) Hep Bs Antigen (Negative) Hep B Core IgM Ab (Negative) Hepatitis C Antibody (Non Reactive) Hepatitis C Interp (.) 11/05/23 11/05/23 11/04/23 Range/Units 05:18 05:18 16:35 WBC (4.8-10.8) x10^3/uL RBC (4.20-5.40) 10^6/uL Hgb (12.0-16.0) g/dL Hct (37.0-47.0) % MCV (81.0-99.0) fL MCH (27.0-31.0) pg MCHC (32.0-36.0) g/dL RDW (12.0-15.0) % Plt Count (130-450) 10^3/uL MPV (7.9-10.8) fL Neut # (Auto) (1.5-6.6) 10^3/uL Lymph # (Auto) (1.5-3.5) 10^3/uL Harrison # (Auto) (0.0-1.0) 10^3/uL Eos # (Auto) (0.0-0.7) 10^3/uL Baso # (Auto) (0.0-0.1) 10^3/uL Absolute Nucleated RBC x10^3/uL Nucleated RBC % /100WBC Sodium (135-145) mmol/L Potassium (3.5-4.5) mmol/L Chloride (101-111) mmol/L Carbon Dioxide (21-32) mmol/L Anion Gap (6-13) BUN (6-20) mg/dL Creatinine (0.6-1.3) mg/dL Estimated GFR (MDRD) (>89) Glucose (74-104) mg/dL POC Whole Bld Glucose (70 - 100) mg/dL Estimat Average Glucose 395 H (70-100) mg/dL Hemoglobin A1c % 15.4 H (4.27-6.07) % Calcium (8.5-10.3) mg/dL Total Bilirubin (0.2-1.0) mg/dL AST (10-42) IU/L ALT (10-60) IU/L Alkaline Phosphatase (42-121) IU/L C-Reactive Protein 3.5 H (<0.5) mg/dL Total Protein (6.4-8.9) g/dL Albumin (3.2-5.5) g/dL Globulin (2.1-4.2) g/dL Albumin/Globulin Ratio (1.0-2.2) Triglycerides mg/dL Cholesterol ( - 200) mg/dL LDL Cholesterol, Calc ( - 129) mg/dL VLDL Cholesterol mg/dL HDL Cholesterol (60 - ) mg/dL LDL/HDL Ratio (<4.4) Cholesterol/HDL Ratio (<4.4) Lipase 23 (11-82) U/L Procalcitonin Immunoas 3.24 H* (<0.5) ng/mL Hepatitis A IgM Ab Negative (Negative) Hep Bs Antigen Negative (Negative) Hep B Core IgM Ab Negative (Negative) Hepatitis C Antibody Non Reactive (Non Reactive) Hepatitis C Interp Comment (.) ABX Reporting Has patient been on IV antibiotics over the past 48 hours?: Yes Sepsis Event Note (H) - Evaluation Current Stage of Sepsis: Ruled out Assessment/Plan - Problem List (1) Chest pain Impression: She presented to the ED on 11/03 with chest tightness since 0600, hx of CABGx5 and currently using metoprolol PRN. 12-lead in the ED SR without ischemia or ST elevation, troponin normal. She was treated with ASA, NTG SL x1 and 25 mg PO metoprolol in the ED and eveloped n/v and transient hypotension with heart block and 5 second sinus pause. No recurrent of arrhythmia or sinus pause, likely a vasovagal event related to vomiting. Her repeat troponin was normal. At this time, I do not believe her chest pain is cardiac in nature. As she is an elderly female with uncontrolled diabetes, her chest pain could represent referred symptoms from a billiary pathology. She continues to have mild chest tightness. No arrhythmias or changes in vs. I will continue her on tele and ASA, as she should be on daily ASA given her underlying heart disease. I will discharge her on ASA. Qualifiers: Chest pain type: unspecified Qualified Code(s): R07.9 - Chest pain, unspecified (2) Elevated liver enzymes Impression: She has elevated LFTs in a pattern consistent with cholangitis. Her AUS chows a dilated CBD at 7-8 mm and a distended gallbladder with slidge and mild edematous wall thickening. She has no expected physical exam findings or complaints consistent with cholangitis such as RUQ pain, jaundice, or fever. She does have persistent nausea, vomited yesterday, and has mild persistent chest tightness with some right sided chest pain which may represent referred pain. nausea and vomiting are also consistent with biliary pathology. She meet the laboratory criteria for cholangitis with T bili >2, Persistently elevated LFTs, and dilation of the CBD on 11/04. MRCP shows a "distended gallbladder with mild wall thickening and pericholecystic edema. Moderate amount of sludge versus tiny gallstones are seen. Mildly distended CBD, with possible tiny filling defects representing additional sludge or tiny stones in the CBD. Consider ERCP if clinically indicated. Mild to moderate hepatic steatosis." Her LFTs are improving although her T. Bili continues to rise at 3.3 and alk phos is 230. WBCs have normalized. Case was discussed with Dr. Henson, General Surgery, who agrees that she does not need emergent ERCP and can follow up with PCP and surgery outpatient for elective cholecystectomy. She should return for any recurrence of symptoms or acute RUQ pain. She has been placed on a carb controlled diet and will be able to discharge once she is tolerating food and water. (3) Leukocytosis Impression: Resolved. Current WBC 10.4. She had luekocytosis with a WBC of 22.0 on 11/03 in the ED. This could be due to her UTI, cholangitis, or both. She is on zosyn 3.375 gm q 8 hrs. This provides coverage for usual abdominal and urinary pathogens. Urine positive for klebsiella pneumonia. I will switch her over to . (4) UTI (urinary tract infection) Impression: UA positive for UTI in the ED on 11/03. She denies any acute urinary symptoms. Micorbiology in pending for urine, growing gram negative rods, likley e. coli. She has uncontrolled DM type 2 with hyperglycemia which likely contributed to her UTI. She is on zosyn for coverage of antr-abdominal and urinary pathogens. I will de-escalate based on findings of MRCP and urine c/s. I will continue zosyn. (5) Diabetes type 2, uncontrolled Impression: She has type 2 DM and has not taken any medication for 2 years, states she manages it with "diet and exercise". She is persistently hyperglycemic with blood glucose high 300's and low 400's. A1c is 15.4 which correlates with an average blood glucose of 395. She has no evidence of ketoacidosis, with a normal anion gap. She also had notable proteinuria and glucosuria on UA. She is insulin naive and I will start her on lantus 10 units in the evening with low dose SSI TID. This will be adjusted as needed to improve glucose control and she will be discharged on metformin. Qualifiers: Glycemic state: with hyperglycemia Qualified Code(s): E11.65 - Type 2 diabetes mellitus with hyperglycemia (6) Sinus pause Impression: She had an episode of heart block with a 5 second sinus pause while vomiting in the ED. This has not recurred and she is hemodynamically stable. I believe this was a vasovagal event. I have her on tele and will continue this during her admission. (7) S/P CABG x 5 Impression: She reports 5 vessel CABG with valve repair 5 years ago, took her medications regularly until 2 years ago. She reportedly stopped because she felt the medications were making her slow. She currently uses her metropolol PRN. I suspect she felt slow as her heart likely does not function the way it did prior to her CABG. She was given a single dose of PRN metoprolol in the ED and had an episode of heart block with a sinus pause and nausea vomiting with transient hypotension. I believe this was a vasovagal event and not due to the metoprolol but cannot be absolutely certain. I will find out what she previously took for her heart and work to get her restarted on cardiac meds upon discharge and she will need PCP and cardiology follow-up. She was started on ASA in the ED and this will be continued.
--- NOTE | 2023-11-06 12:25 | DISCHARGE SUMMARY ---
"<Radha Burks - Last Filed: 11/06/23 12:51> Discharge Summary Admit Date: 11/04/23 Discharge Date: 11/06/23 Discharging Provider: PARADISE Kendall Primary Care Provider: No PCP, needs to establish care Code Status: Attempt Resuscitation Condition at Discharge: Stable Discharge Disposition: 01 Home, Self Care - DIAGNOSES Admission Diagnoses: 1. Chest pain 2. Elevated liver enzymes 3. Leukocytosis 4. Sinus pause 5. UTI Discharge Diagnoses with Status of Each Condition: 1. Angina Pectoris, stable 2. Elevated liver enzymes, resolving 3. Leukocytosis, resolved 4. Sinus pause, resolved 5. UTI, resolving - HPI History of Present Illness: Ms. Andre is a 67-year-old woman with history of 5-vessel coronary bypass and valve repair who presented to the ED on 11/03 with ongoing chest tightness since 6 AM. She was also nauseas but had not vomited. When queried about medication compliance, she says she takes metoprolol about twice a week when she remembers, and she is not on anything for her diabetes. She is a retired merchant marine, was very active till 5 years ago had 5 vessel bypass with valve repair, took meds religiously around 2 years ago felt meds were making her slow and decided to stop meds and took them as needed, states diabetes is managed by diet. She denied recent illness or trauma, SOB, cough, fever, chills, abdominal pain or dysuria. - HOSPITAL COURSE Hospital Course: In the ED, her initial EKG was sinus rhythm and nonischemic. Her chest pain was treated with metoprolol, Nitropaste and aspirin. At 4:30 PM she become nauseous and developed significant heart block with 5+ second pauses. She was vomiting during that time and after she vomited, her heart rate came back to normal. Initial work-up notable for white count of 22,000 and elevated liver enzymes. She has no abdominal tenderness including to deep palpation in the right upper quadrant. Biliary etiology of her pain was considered and can cause nausea and vomiting. She did not have any further vomiting, bradycardia or heart block. Repeat LFTs showed an increase with marked elevated in T. bili, AST, ALT, and alk phos but she has no fever, RUQ pain, or jaundice. She continued to have some tightness and pressure in the mid chest and right chest area. Her chest pain was not consistent with ACS and troponin was normal with no ischemia or ST elevation on 12-lead. Her chest pain is currently not being treated as cardiac in nature. AUS showed a distended gallbladder with sludge and mild edematous wall thickening, CBD mildly dilated at 7-8 mm, and increased heterogenous echotexture of the liver, most commonly seen with fibrofatty infiltration. She was found to have a UTI but has no associated urinary complaints. She was started on zosyn and admitted to med/surg for further work-up. She has not vomited since admission and denies cough, SOB, abdominal pain, or dysuria. She continues to have nausea and intermittent chest tightness. Her labs on 11/04 were concerning for cholangitis and she met laboratory criteria inc luding leukocytosis, T. bili >2, and US findings of CBD dilation. She had no expected physical exam findings or complaints for cholangitis such as RUQ pain, jaundice, or fever. MRCP shows gallbladder distention and inflammation with mild CBD dilation and small filling defect, possible small stones. On 11/05 her LFTs were improving, suggesting a stone was likely present and passed on its own. She is clinically stable, her case was discussed with general surgery, and she can follow-up with her PCP and surgery outpatient for an elective cholecystectomy after she gets cardiac clearance. She has had no recurrence of heart block or sinus pause and was on tele during her admission. It is unclear if the heart block and sinus pause was due to the metropolol or if it was a vasovagal event caused by nausea/vomiting. She stopped taking her cardiac meds 2 years ago and has previously been diagnosed with ischemic cardiomyopathy and HFrEF. ECHO during her admission showed Normal LV and systolic function with an LVEF of 55-60%, mild diastolic dysfunction, mild RV dilation, mild mitral and tricuspid regurgitation, and moderate mitral stenosis and aortic stenosis. Her EF appears to have improved since her last ECHO as her previous diagnosis was HFrEF. She will need to re-establish care with cardiology to get her back on an appropriate treatment regimen. Her BP and HR have been stable during admission and additional HF meds can be initiated outpatient. We will discharge her on ASA but we will not restart her atorvastatin as her LFTs have nor mormalized yet. She was found to have a UTI and cultures grew klebsiella pneumonia esparza sensitive. She reported no urinary symptoms. She was treated with 2 days of IV zosyn during her stay for coverage of both urinary and abdominal emeka. Her WBCs have normalized and she has remained a-febrile. She will be discharged home on a 5 day course of keflex 500 mg BID and flagyl 500 mg TID for a total duration of 7 days of antibiotic therapy. She has type 2 diabetes that is currently uncontrolled. Her A1c was 15.4 which correlates with an average blood sugar of 395. Her blood sugar was in the high 300s-low 400's upon admission with no indication of ketoacidosis. She was previously on metformin 500 mg BID but stopped taking it 2 years ago. She had proteinuria and glucosuria on her UA and this likely contributed to her UTI. She was started on lantus 10 units at night and blood sugars came down to the 175- 181 range. She will be sent home on lantus 10 units at night and will need close follow-up for her diabetes with her PCP. She also need to start doing yearly foot and eye exams. - ALLERGIES Allergies/Adverse Reactions: Allergies Allergy/AdvReac Type Severity Reaction Status Date / Time No Known Drug Allergies Allergy Verified 11/04/23 16:06 - MEDICATIONS Home Medications: Ambulatory Orders Medication Instructions Recorded Confirmed Aspirin EC [Ecotrin] 81 mg PO DAILY 14 Days #14 tab 11/06/23 Insulin Glargine [Lantus Solostar] 10 unit SUBQ DAILY PM 14 Days 11/06/23 cephALEXin [Keflex] 500 mg PO BID 5 Days #28 11/06/23 metroNIDAZOLE [Flagyl] 500 mg PO TID 5 Days #15 tab 11/06/23 - PHYSICAL EXAM AT DISCHARGE General Appearance: positive: No acute distress, Alert, Other (67 y/o female, conversant and pleasant, obese) Eyes Bilateral: positive: Normal inspection, No scleral icterus Neck: positive: Nml inspection, No JVD Respiratory: positive: Chest non-tender, No respiratory distress, Breath sounds nml. negative: Wheezes, Rales, Rhonchi Cardiovascular: positive: Regular rate & rhythm, No gallop, Systolic murmur (Systolic murmur loudest right upper sternal border, grade 2) Peripheral Pulses: positive: 2+ Abdomen: positive: Non-tender, No organomegaly, Nml bowel sounds, No distention Back: positive: Nml inspection Skin: positive: Color nml, No rash, Warm, Dry Extremities: positive: Non-tender, No pedal edema Neurologic/Psychiatric: positive: Oriented x3, CN's nml (2-12), Motor nml, Sensation nml, Mood/affect nml - LABS Result Diagrams: 11/06/23 05:08 11/06/23 05:08 Other Lab Results: Laboratory Tests 11/04/23 11/04/23 11/05/23 16:35 22:16 05:18 Total Bilirubin 2.1 H 2.1 H AST 446 H 1088 H ALT 129 H 400 H Alkaline Phosphatase 190 H 188 H C-Reactive Protein 3.5 H Lipase 38 Procalcitonin Immunoas 3.24 H* 11/06/23 05:08 Total Bilirubin 3.3 H AST 171 H ALT 284 H Alkaline Phosphatase 230 H C-Reactive Protein Lipase Procalcitonin Immunoas - DIAGNOSTIC IMAGING Diagnostic Imaging Results: Final report reviewed Diagnostic Imaging Results Comments: AUS: 1) Distended gallbladder with sludge and mild edematous wall thickening. No nonographic Yuen's signto suggest acute cholecystitis. 2) CBD is mildly dilated at 7-8 mm. 3) Increased heterogenous echotexture of the liver, most commonly seen with fibrofatty infiltration. MRCP: 1) Distended gallbladder with mild wall thickening and pericholecystic edema. Moderate amount of sludge versus tiny gallstones are seen. 2) Mildy dis tended CBD, with possible tiny filling defects representing additional sludge or tiny stones in the CBD. 3) Mild to moderate hepatic steatosis ECHO: 1) Normal LV size and systolic function, LVEF 55-60%. 2) Mildly dilated RV size and systolic function. 3) Mild tricuspid and mitral regurgitation. 4) Moderate mitral stenosis. 5) Moderate aortic stenosis. - SEPSIS Current Stage of Sepsis: Ruled out - FOLLOW UP Follow Up: Establish PCP and follow up with referral to cardiology <Daniel Dunn - Last Filed: 11/06/23 15:09> Discharge Summary - DIAGNOSES Discharge Diagnoses with Status of Each Condition: Anginachronic Elevated liver enzymesresolving UTIresolving Diabeteschronic History of CABGchronic - CONSULTS | PROCEDURES Consultations: General Surgery Procedures: MRCP - LABS Result Diagrams: 11/06/23 05:08 11/06/23 05:08 - TIME SPENT Time Spent in Discharge (Minutes): 45"
--- NOTE | 2023-11-06 13:41 | Discharge Plan ---
Discharge Plan Problem Reviewed?: Yes Diet: Diabetic (Low fat and bland) Activity Restrictions: No Restrictions Follow-Up Care: [facility] - Diabetes Ed No Smoking: If you smoke, Please STOP! Call for help. Disposition: Home, Self Care Condition: Stable Prescriptions: Aspirin EC [Ecotrin] 81 mg PO DAILY 14 Days #14 tab metroNIDAZOLE [Flagyl] 500 mg PO TID 5 Days #15 tab cephALEXin [Keflex] 500 mg PO BID 5 Days #28 Insulin Glargine [Lantus Solostar] 10 unit SUBQ DAILY PM 14 Days Instruction Topics: Angina, Insulin Injected, Gallstones, Cholecystectomy Health Concerns: 1. Gallstones with inflammation of your gallbladder and liver 2. Urinary Tract Infection 3. Angina Pectoris 4. Diabetes Plan of Treatment: You were treated for inflammation of your gallbladder and a possible common bile duct stone that passed on its own. You recieved antibiotics to cover bacteria that can cause infection in your gallbadder and will finish up your treatment at home with oral antibiotics. You still have some small stones in your gallbladder and this could happen again. You will need to follow up within 2 weeks with a primary care provider for a referral to surgery for an elective cholecystectomy. Your diabetes was not controlled when you came in and we have started you on insulin which has brought it down. You will be discharged on insulin that you will take once a night. You need close follow up for your diabetes and will need to do this with a primary care provider and the diabetes clinic. It is very important to manage your diabetes to preserve your current lifestyle. The follow-up for your diabetes needs to be in the next two week. You were found to have urinary tract infection and this was also treated with the antibiotics. You will finish 5 more days of antibiotics for this. You need to finish the antibiotics to prevent another infection. Your high blood sugar contributed to this infection as you had sugar in your urine. Managing your diabetes will reduce your risk for future urinary tract infections. Your chest pain was evaluated and is stable at this time. You have angina pectoris due to your heart disease. You had a single episode of a rhythm called heart block with a 5 second pause while you were in the emergency room. We have monitored your heart and this has not happened again. You had no signs of acute heart failure or evidence of a heart attack at this time. If you have worsening chest discomfort, shortness of breath, nausea and vomiting, sweating or dizziness you should call 911 or come to the ED. You will need a referral to cardiology from your primary care provider for your heart disease. You have diabetes, heart disease, and gallstones. It is very important that you follow-up and actively manage your health. You will need to establish care with a primary care provider within 2 weeks. This can be with any primary care network, including [facility]. Care Goals: 1. Establish care with a PCP 2. Finish antibiotics 3. Haakon and low fat diet 4. Referral to general surgery for elective cholecystectomy 5. Take your insulin 6. Take ASA for your heart
[2023-11-06 15:51] VITALS: BP 145/67; O2SAT 92
== END 2023-11-06 16:30 | disposition home or self-care (01) | DRG 311 ==
LOC: ED 15:58 → MS2 23:25
PROVIDERS: ADMIT Internal Medicine; ATTEND Nurse Practitioner Acute Care
DX: R07.89 Other chest pain (principal); R55 Syncope and collapse; I20.9 Angina pectoris, unspecified; N39.0 Urinary tract infection, site not specified; I50.20 Unspecified systolic (congestive) heart failure; K83.09 Other cholangitis; R74.8 Abnormal levels of other serum enzymes; T39.016A Underdosing of aspirin, initial encounter; I45.5 Other specified heart block; E78.00 Pure hypercholesterolemia, unspecified; R60.0 Localized edema; I87.8 Other specified disorders of veins; Z95.1 Presence of aortocoronary bypass graft; E87.1 Hypo-osmolality and hyponatremia; R11.2 Nausea with vomiting, unspecified; I25.5 Ischemic cardiomyopathy; I11.0 Hypertensive heart disease with heart failure; B96.1 Klebsiella pneumoniae [K. pneumoniae] as the cause of diseases classified elsewhere; R80.9 Proteinuria, unspecified; E11.65 Type 2 diabetes mellitus with hyperglycemia; K80.70 Calculus of gallbladder and bile duct without cholecystitis without obstruction; T44.7X6A Underdosing of beta-adrenoreceptor antagonists, initial encounter; Z91.128 Patient's intentional underdosing of medication regimen for other reason; T38.3X6A Underdosing of insulin and oral hypoglycemic [antidiabetic] drugs, initial encounter
CPT/HCPCS: 36415; 71045; 74183; 76705; 80053; 80061; 80074; 81001; 83036; 83690; 84145; 84484; 85025; 86140; 87077; 87086; 87181; 93005; 93307; 96374; 99285; A9270; J1815; 81003; 83721